=== PATIENT | male | born 2005 | race Caucasian/White ===

== ENCOUNTER 2025-10-07 09:26 | Emergency (ER) | payer OTHER, SELFPAY ==
[2025-10-07 09:34] VITALS: BP 119/66
--- NOTE | 2025-10-07 10:08 | ED.GENMED ---
History of Present Illness
General
Chief Complaint: Fever
Time Seen by Provider: 10/07/25 09:41
History of Present Illness
History of Present Illness:
Patient is a 19-year-old man who is otherwise healthy presenting to the emergency department with a skin infection. He states that 3 days ago he was seen at urgent care and diagnosed with impetigo. He had a rash from wrestling to his entire left
side. They started him on Bactrim as well as topical mupirocin. Since then he has been having some chills. Did not check his fever. Last took ibuprofen this morning at 4 AM. No drainage. No numbness tingling. The rash has not spread. Patient
does state that he has had a history of ringworm. No history of MRSA.
Phy Exam
Physical Exam
Physical Exam:
GENERAL: in no acute distress
HEENT: normocephalic, extraocular movements intact, moist oral mucosa
NECK: normal inspection
RESPIRATORY: no respiratory distress
CARDIOVASCULAR: regular rate and rhythm
EXTREMITIES: non-tender, no edema/swelling
NEUROLOGIC: awake and alert, moves all extremities
SKIN: Maculopapular rash with scabbing to the left side of patient's face particularly on the cheek as well as left upper extremity where patient did have significant contact, mild erythema surrounding the scabbing, no warmth, no tenderness, no
fluctuance. Several vesicular lesions
Course
Orders/Labs/Results
Orders:
Orders
10/07/25 10:15
Basic Metabolic Panel Urgent
Complete Blood Count/With Diff Urgent
Abnormal Lab Results
10/07/25
10:15
WBC 3.3 L 10^3/uL
(4.8-10.8)
RBC 3.99 L 10^6/uL
(4.70-6.10)
Hct 37.7 L %
(39.0-52.0)
MCV 94.5 H fL
(80.0-94.0)
MCH 32.8 H pg
(27.0-31.0)
Absolute Lymphs (auto) 0.6 L 10^3/uL
(1.2-3.4)
Lymphocytes % 18.1 L %
(20.5-51.1)
Monocytes % 12.7 H %
(1.7-9.3)
Sodium 134 L mmol/L
(135-145)
10/07/25 10:15
10/07/25 10:15
Vital Signs
Initial and Last Documented VS:
Initial Vital Signs
Temp Pulse Resp BP Pulse Ox
98.4 F 60 16 119/66 100
10/07/25 09:34 10/07/25 09:34 10/07/25 09:34 10/07/25 09:34 10/07/25 09:34
Last Documented Vital Signs
Temp Pulse Resp BP Pulse Ox
97.8 F 60 16 119/66 100
10/07/25 10:33 10/07/25 09:34 10/07/25 09:34 10/07/25 09:34 10/07/25 10:12
MDM/Problems Addressed
Differential Diagnosis Includes:
Patient is a 19-year-old man presenting to the emergency department with a skin rash. On arrival patient is afebrile. On exam patient does have a rash with scabbing to the left side of his face and left upper extremity with surrounding erythema
but no warmth or tenderness or drainage. Concern for superimposed infection from what appears like contact dermatitis. It does look like there are some new lesions that are vesicular. No prior pictures to see with a rash like initially.. History
exam not consistent with ringworm. Will check blood work to evaluate for any systemic signs at patient's request.
*Pulse Oximetry
SaO2: 100
Oxygen Mode of Delivery: Room air
Patient hypoxic: no
*Critical Care Note
Total Time (30-74mins, 75-104mins- exclusive of procedures): Not Applicable
Update Note
Update Note:
Blood work reassuring. I did discuss with pharmacy regarding additional gram-positive coverage. Will add on Keflex. Also start Valtrex for the herpetic infection. Patient does state that similar to when he had herpes before. Patient advised to
avoid contact sports until lesions are healed. Will discharge at this time.
ED Attending Note
-
Portions of this chart may have been created with voice recognition software.� Occasional wrong word or��sound alike� substitutions may have occurred due to the inherent limitations of voice recognition software.
Discharge Plan
Departure
Patient Disposition: Home (Routine Discharge)
Date of Disposition: 10/07/25
Time of Disposition: 11:24
Patient with high blood pressure during this ER visit?: No
Discharge Problem:
Cellulitis, Herpes infection
Instructions: Cellulitis (skin infection) in adults - ED (DC)
Prescriptions:
New
cephalexin 500 mg capsule
500 mg PO QID 7 Days Qty: 28 0RF
valacyclovir 1 gram tablet
1,000 mg PO BID 7 Days Qty: 14 0RF
No Action
oseltamivir 75 MG capsule
75 mg PO BID Qty: 9 0RF
Referrals:
NONE,* [Family Provider, Internal Medicine]
Activity Restrictions/Additional Instructions:
You were seen in the Emergency Department today for a skin infection. While you were here we performed blood work, which was reassuring. please make sure you continue the Bactrim as well as starting the new 2 medications. Please avoid any contact
sports until your lesions have healed.
We would like for you to follow up with your primary care physician for further evaluation. If you experience fever, worsening of your symptoms, or develop any other new or concerning symptoms, please return to the Emergency Department immediately.
Please see the attached sheet for additional information.
Interventions
Interventions:
*Risk Screen - Suicide Last Done: 10/07/25 10:23
*General Assessment Last Done: 10/07/25 10:23
*Neglect/Abuse Screening Last Done: 10/07/25 10:23
*ED- Fall Risk Assessment Last Done: 10/07/25 10:54
*ED COVID-19 Vaccine History Last Done: 10/07/25 10:54
*ED Influenza Vaccine History Last Done: 10/07/25 10:54
ED- Neurological Assessment Last Done: 10/07/25 10:24
ED-Skin Assessment Last Done: 10/07/25 10:24
Discharge Date and Time
Print Language: TANZANIAN
[2025-10-07 10:25] LABS: Hematocrit 37.7 % (39.0-52.0); Hemoglobin 13.1 g/dL (13.0-18.0); Mean Corp Hgb Conc. 34.7 g/dL (33.0-37.0); Mean Corpuscular Volume 94.5 fL (80.0-94.0); Nucleated Red Blood Cells % 0 % (-); Platelet Count 147 10^3/uL (130-400); Red Cell Dist. Width 12.7 % (11.5-14.5)
[2025-10-07 10:59] LABS: Blood Urea Nitrogen 13 mg/dl (9-20); Calcium 8.9 mg/dl (8.4-10.2); Carbon Dioxide 28 mmol/L (22-30); Chloride 103 mmol/L (98-107); Glucose 92 mg/dl (70-99); Potassium 4.4 mmol/L (3.5-5.1); Sodium 134 mmol/L (135-145); eGFR > 60.00
== END 2025-10-07 11:50 | disposition home or self-care (01) ==
LOC: EMR 09:26
PROVIDERS: EMERGENCY PHYSICIAN Student in an Organized Health Care Education/Training Program
DX: L03.114 Cellulitis of left upper limb (principal); B00.9 Herpesviral infection, unspecified
CPT/HCPCS: 99283; 80048; 85025